=== PATIENT | male | born 1965 | race Caucasian/White ===

== ENCOUNTER → 2018-08-01 | Outpatient (CLI) | payer BC ==
[~2018-08-01] MED LIST: NORCO 5-325 TA1 EACH PO
== END ==
LOC: M.MRI 07:43
DX: M17.11 Unilateral primary osteoarthritis, right knee (principal); Z88.8 Allergy status to other drugs, medicaments and biological substances

== ENCOUNTER 2019-03-01 05:13 | Inpatient (IN) | payer BC ==
[~2019-03-01] VITALS: Ht 177.8 cm; Wt 95.3 kg
[2019-03-01 05:27] VITALS: BP 167/118; BP 167/78
[2019-03-01 05:49] LABS: URINE BILIRUBIN NEGATIVE (Negative); URINE BLOOD 3+ (Negative); URINE CLARITY CLEAR; URINE COLOR YELLOW; URINE GLUCOSE-RANDOM NEGATIVE (Negative); URINE KETONES NEGATIVE (Negative); URINE LEUKOCYTES-REFLEX 1+ (Negative); URINE NITRITE-REFLEX NEGATIVE (Negative); URINE PROTEIN TRACE (Negative); URINE SPECIFIC GRAVITY 1.015 (1.005-1.030); URINE UROBILINOGEN 0.2 E.U./dl (0.2-1.0)
[2019-03-01 05:57] LABS: BACTERIA-REFLEX 1-9 Few /HPF (None Seen); CASTS None Seen /LPF (None Seen); CRYSTALS None Seen /LPF (None Seen); MUCUS 4-6 Moderate strn/LPF (None Seen); SQUAMOUS 0-3 Few /LPF (0-3); URINE WBC-REFLEX 0-5 Rare /HPF (0-5)
[2019-03-01 06:00] LABS: ABSOLUTE BASOPHILS 0.1 thou/uL (0.0-0.2); ABSOLUTE EOSINOPHILS 0.1 thou/uL (0.0-0.7); ABSOLUTE LYMPHOCYTES 1.3 thou/uL (0.8-5.3); ABSOLUTE MONOCYTES 1.5 thou/uL (0.0-1.2); ABSOLUTE NEUTROPHILS 11.6 thou/uL (1.6-8.1); EOSINOPHILS 0.5 %; HEMATOCRIT 44.2 % (42.0-52.0); HEMOGLOBIN 14.9 gm/dL (14.0-18.0); MCH 30.4 pg (26.0-34.0); MCHC 33.7 g/dL (28.0-37.0); MCV 90.2 fL (80.0-100.0); MPV 6.9 fl. (7.2-11.1); NUCLEATED RBCS 0 /100WBC; PLATELET COUNT* 322 thou/uL (150-400); POLYS 79.5 %; RDW-CV 13.4 % (10.5-14.5); WBC 14.6 thou/uL (4.0-11.0)
[2019-03-01 06:07] LABS: CALCIUM 9.1 mg/dL (8.5-10.1); POTASSIUM 4.3 mmol/L (3.5-5.1)
[2019-03-01 06:10] LABS: APTT 27.9 Seconds (25.0-31.3); INR 1.1; PROTIME 11.1 Seconds (9.20-11.50)
[2019-03-01 06:11] LABS: ALBUMIN 3.2 g/dL (3.4-5.0); TOTAL BILIRUBIN 0.3 mg/dL (<0.1-1.0); TOTAL PROTEIN 7.5 g/dL (6.4-8.2)
[2019-03-01 11:07] VITALS: BP 139/104
[2019-03-01 16:15] VITALS: BP 144/110
--- NOTE | 2019-03-01 16:30 | NUR ---
PT ARRIVED FROM PACU. PT A&OX4,ORIENTED TO ROOM. CALL LIGHT WITHIN REACH.
--- NOTE | 2019-03-01 16:58 | EKG ---
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
[2019-03-01 17:03] LABS: AMP/METHAMP POSITIVE (Negative); BARBITURATES Negative (Negative); BENZODIAZEPINES Negative (Negative); COCAINE Negative (Negative); METHADONE Negative (Negative); OPIATES POSITIVE (Negative); PCP Negative (Negative); THC Negative (Negative)
[2019-03-01 20:30] VITALS: BP 146/95
[2019-03-02] VITALS: BP 141/82
[2019-03-02 03:23] LABS: URINE BILIRUBIN NEGATIVE (Negative); URINE BLOOD 3+ (Negative); URINE CLARITY CLEAR; URINE COLOR YELLOW; URINE GLUCOSE-RANDOM NEGATIVE (Negative); URINE KETONES NEGATIVE (Negative); URINE LEUKOCYTES-REFLEX NEGATIVE (Negative); URINE NITRITE-REFLEX NEGATIVE (Negative); URINE PROTEIN NEGATIVE (Negative); URINE UROBILINOGEN 0.2 E.U./dl (0.2-1.0)
[2019-03-02 03:41] LABS: BACTERIA-REFLEX 1-9 Few /HPF (None Seen); CASTS None Seen /LPF (None Seen); CRYSTALS None Seen /LPF (None Seen); MUCUS 0-3 Light strn/LPF (None Seen); SQUAMOUS 0-3 Few /LPF (0-3); URINE RBC >20 Many /HPF (0-2); URINE WBC-REFLEX 6-15 Few /HPF (0-5)
[2019-03-02 03:58] VITALS: BP 128/78
[2019-03-02 04:22] LABS: CALCIUM 8.3 mg/dL (8.5-10.1); CREATININE 1.5 mg/dL (0.6-1.3); POTASSIUM 4.2 mmol/L (3.5-5.1)
[2019-03-02 04:28] LABS: HEMATOCRIT 40.8 % (42.0-52.0); HEMOGLOBIN 13.5 gm/dL (14.0-18.0); MCH 30.2 pg (26.0-34.0); MCV 91.6 fL (80.0-100.0); MPV 7.4 fl. (7.2-11.1); RBC 4.46 mil/uL (4.50-6.00); RDW-CV 13.8 % (10.5-14.5); WBC 13.2 thou/uL (4.0-11.0)
--- NOTE | 2019-03-02 04:33 | NUR ---
PATIENT HAS REMAINED ALERT AND ORIENTED X 4 THROUGHOUT THE SHIFT AND RESTING QUIETLY ON HOURLY ROUNDS. UP INDEPENDENTLY IN THE ROOM. MEDICATED X 1 FOR KIDNEY PAIN TO GOOD EFFECT. IV RESTARTED AFTER DISLODGING DURING SLEEP. VOIDS PER URINAL IN LARGE AMOUNTS. PINK IN COLOR, NO CLOTS. IVF'S PER ORDER. NICOTINE PATCH ORDER AQUIRED PER ORDER. VITAL SIGNS STABLE. CONTINUENTO MONITOR.
[2019-03-02 08:15] VITALS: BP 144/83
--- NOTE | 2019-03-02 08:51 | OP ---
[address] [address] OPERATIVE REPORT Name: ERICA KIRKPATRICK Room: [address] IN .R.#: [id number] Admission: 03/01/19 Attend Phys: Nica Nicholson Discharge: Date of : 69 Report #: [id number] THIS REPORT FOR: //name// CC: [facility] Nica Olson DATE OF SERVICE: 03/01/2019 PREOPERATIVE DIAGNOSES: 1. Left proximal ureteral stone with hydronephrosis. 2. Acute renal failure. 3. Left renal stones. 4. Right staghorn renal stone. SURGEON: Alexa Bhardwaj MD PROCEDURE: Cystourethroscopy, left retrograde pyelogram and left ureteral stent placement (6 x 28). SURGEON: Alexa Bhradwaj MD ANESTHESIA: General. ESTIMATED BLOOD LOSS: None. COMPLICATIONS: None. SPECIMENS: Urine for culture and sensitivity. INDICATIONS FOR PROCEDURE: The patient is a 54-year-old male who presented with left flank pain. He was afebrile, but had some leukocytosis and creatinine elevation. CT scan revealed a large left proximal obstructing stone along with left renal stones. Also, he was noted to have a large right staghorn stone. Urine was mildly questionable for infection, although nitrite was negative. He did have a few bacteria noted on UA. Options were discussed. Because of the large stone burden on the right, he will need a PCNL eventually, but the acute problem currently appears to be the left obstructing stone. We discussed possibility of ureteroscopy versus just stent placement, depending on how the urine looked. As long as he is not having any a right-sided symptoms and seems to be improving, we will try to avoid nephrostomy tube placement during this hospitalization, but if he does develop intractable flank pain on the right or fever or signs of sepsis, he will need a right nephrostomy tube placed as well as a left ureteral stent and then he will need right PCNL electively. We discussed the risks of this procedure including infection, bleeding, injury to the urethra, bladder, ureter, need for secondary procedures, stent pain, [place] [address] OPERATIVE REPORT Name: ERICA KIRKPATRICK Room: [address] IN [facility]#: [id number] Admission: 03/01/19 Attend Phys: Nica Nicholson Discharge: Date of : 69 Report #: [id number] cardiopulmonary complications. He does understand that stent is not a permanent structure and needs to be removed or changed in a timely fashion. He understands the importance of followup. He voiced understanding of all this and wishes to proceed. DESCRIPTION OF PROCEDURE: After informed consent was obtained, the patient was taken back to the operating suite and placed supine. After induction of general anesthesia, he was placed in dorsal lithotomy position. Genitalia prepped and draped in standard fashion. Rigid cystoscopy was performed. He had a very mild fossa stricture, but I was able to pass the scope without difficulty. The anterior urethra was normal without stricture. His prostate was short and nonobstructing. Bladder was carefully inspected with 30 and 70 degree lenses. 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 His ureteral orifices were orthotopic in position. His right staghorn stone was seen on fluoroscopy and in his proximal left ureteral stone was also seen on fluoroscopy. He also appeared to have some stone material what appeared to be in the distal ureter on fluoroscopy. Retrograde was performed on the left with a cone tip catheter. This revealed a multitude of filling defects in the very distal ureter with proximal hydroureteronephrosis. It was difficult to get the contrast to pass the mid ureter. It looked like he had dropped some stone material into the distal ureter and some sand came from the left UO, but then after the wire was placed, which passed into the kidney without difficulty, a decent amount of brown purulent looking urine drained. Given that appearance of the urine, I elected to just place a stent at this time. A 5-Uzbek open-ended catheter was threaded over the wire into the kidney and the wire was removed. Urine was aspirated and actually from the renal pelvis, this looked clear and not purulent. The wire was replaced after injecting contrast to delineate the collecting system for stent placement and this revealed hydroureteronephrosis with a large proximal stone noted and multiple distal stones noted. The wire that was left in place and a 6-Uzbek x 28 cm double-J stent was threaded over the wire without difficulty. Proximal curl was noted to be in the mid pole and there was good curl in the bladder under direct visualization. There was no further drainage of any purulent material. However, urine was sent for culture and sensitivity. Some very tiny stone sand was seen at the base of the bladder after this wire and stent was placed, and this was drained out of the bladder. The bladder was filled and emptied one final time. The scope was removed, 5 mL of lidocaine jelly were placed per urethra for local anesthesia. He was awoken, extubated, and taken to recovery in satisfactory condition. He will be admitted to the floor on IV antibiotics, await his cultures. He will need antibiotics prior to proceeding with ureteroscopy on the left. He will then need an elective right PCNL at some point as well. <ELECTRONICALLY SIGNED> By: Alexa Bhardwaj MD 03/02/19 0851 [id number] Bhardwaj MD /nt
[2019-03-02 15:41] VITALS: BP 128/78
--- NOTE | 2019-03-02 18:35 | NUR ---
PATIENT PLEASANT AND COOPERATIVE THRU SHIFT W/ ASSESS AND CARES. INDEP IN RM W/ STEADY GAIT. PATIENT STATES HE HAS HX OF NARCOLEPSY, FALLS ASLEEP WHEN HE IS NOT MOVING AROUND AND STAYING BUSY. IV FLUIDS INFUSING W/O DIFF. IV SITE NOTED WNL. PATIENT DENIES PAIN, N/V THIS SHIFT. HRLY ROUNDS DONE. DENIES NURSING NEEDS AT THIS TIME. CALL LIGHT IN REACH. ~TJRN
[2019-03-02 20:00] VITALS: BP 136/91
[2019-03-03] VITALS: BP 140/94
[2019-03-03 04:17] LABS: HEMATOCRIT 38.9 % (42.0-52.0); MCH 30.6 pg (26.0-34.0); MCHC 33.5 g/dL (28.0-37.0); MCV 91.4 fL (80.0-100.0); MPV 7.3 fl. (7.2-11.1); RBC 4.25 mil/uL (4.50-6.00); RDW-CV 13.8 % (10.5-14.5); WBC 10.6 thou/uL (4.0-11.0)
[2019-03-03 04:34] LABS: CALCIUM 8.3 mg/dL (8.5-10.1); CREATININE 1.2 mg/dL (0.6-1.3); POTASSIUM 3.6 mmol/L (3.5-5.1)
[2019-03-03 08:15] VITALS: BP 135/91
[2019-03-03] MEDS ORDERED: ZOFRAN ODT4 MG DISSOLVE (13:21)
[2019-03-03] MEDS ORDERED: HYDROCODON-ACE1 EAC7 PO (13:21)
[2019-03-03] MEDS ORDERED: LEVSIN0.125 MG SUBLING (13:21)
[2019-03-03] MEDS ORDERED: LEVAQUIN 750 M750 MG PO (13:21)
[2019-03-03] MEDS ORDERED: NICOTINE TRANSD14 M1 TRANSDERM (13:21)
[2019-03-03 16:14] VITALS: BP 135/91
[2019-03-03 16:18] VITALS: BP 135/91
--- NOTE | 2019-03-03 17:14 | NUR ---
I ASSUMED CARE OF THE PATIENT AT 0700. HE IS ALERT AND ORIENTED X4 AND IS UP AD NORBERTO. DAUGHTER IS AT THE BEDSIDE. BED IS IN THE LOW LOCKED POSITION AND CALL LIGHT IS IN REACH. HOURLY ROUNDING IS COMPLETED AND PATIENT NEEDS ARE MET. PAIN IS DENIED. WILL CONTINUE TO MONITOR. HE IS DISCHARGED TO HOME WITH SCRIPTS AT 1645.
== END 2019-03-03 16:45 | disposition home or self-care (01) | DRG 661 ==
LOC: M.ERS 05:13 → M.TBA-ER 07:52 → M.ORTHSURG 07:52 → M.TBA-ER 13:34 → M.ORTHSURG 16:29
PROVIDERS: Personal Emergency Response Attendant; Urology; ADMIT Family Medicine
PROC: BT1F1ZZ Fluoroscopy of Left Kidney, Ureter and Bladder using Low Osmolar Contrast (ICD-10-PCS; principal; 2019-03-01)
PROC: 0T778DZ Dilation of Left Ureter with Intraluminal Device, Via Natural or Artificial Opening Endoscopic (ICD-10-PCS; principal; 2019-03-01)
DX: N13.6 Pyonephrosis (principal); N17.9 Acute kidney failure, unspecified; N12 Tubulo-interstitial nephritis, not specified as acute or chronic; R61 Generalized hyperhidrosis; F17.210 Nicotine dependence, cigarettes, uncomplicated; R31.9 Hematuria, unspecified; K76.0 Fatty (change of) liver, not elsewhere classified; Z87.442 Personal history of urinary calculi; Z79.891 Long term (current) use of opiate analgesic; Z79.899 Other long term (current) drug therapy; Z79.2 Long term (current) use of antibiotics

== ENCOUNTER 2021-01-05 15:05 | Inpatient (IN) | payer OTHER ==
[~2021-01-05] VITALS: Ht 177.8 cm; Wt 105.7 kg
[~2021-01-05 15:05] MED LIST changes: +HYDROCODON-ACE1 EAC7 PO; +LEVAQUIN 750 M750 MG PO; +LEVSIN0.125 MG SUBLING; +NICOTINE TRANSD14 M1 TRANSDERM; +ZOFRAN ODT4 MG DISSOLVE
[2021-01-05 15:15] VITALS: BP 166/105
[2021-01-05 15:32] LABS: ABSOLUTE BASOPHILS 0.1 thou/uL (0.0-0.2); ABSOLUTE EOSINOPHILS 0.2 thou/uL (0.0-0.7); ABSOLUTE LYMPHOCYTES 1.7 thou/uL (0.8-5.3); ABSOLUTE MONOCYTES 1.3 thou/uL (0.0-1.2); ABSOLUTE NEUTROPHILS 10.3 thou/uL (1.6-8.1); EOSINOPHILS 1.3 %; HEMATOCRIT 43.6 % (42.0-52.0); HEMOGLOBIN 14.7 gm/dL (14.0-18.0); LYMPHOCYTES 12.3 %; MCHC 33.8 g/dL (28.0-37.0); MCV 91.7 fL (80.0-100.0); MONOCYTES 9.4 %; MPV 7.2 fl. (7.2-11.1); NUCLEATED RBCS 0 /100WBC; PLATELET COUNT* 306 thou/uL (150-400); RBC 4.75 mil/uL (4.50-6.00); RDW-CV 15.2 % (10.5-14.5); WBC 13.6 thou/uL (4.0-11.0)
[2021-01-05 15:33] LABS: URINE BILIRUBIN NEGATIVE (Negative); URINE BLOOD 3+ (Negative); URINE COLOR YELLOW; URINE GLUCOSE-RANDOM NEGATIVE (Negative); URINE KETONES NEGATIVE (Negative); URINE NITRITE-REFLEX NEGATIVE (Negative); URINE PROTEIN TRACE (Negative); URINE UROBILINOGEN 0.2 E.U./dl (0.2-1.0)
[2021-01-05 15:35] LABS: URINE CLARITY CLOUDY; URINE LEUKOCYTES-REFLEX 3+ (Negative)
[2021-01-05 15:36] LABS: BACTERIA-REFLEX >30 Many /HPF (None Seen); CASTS None Seen /LPF (None Seen); CRYSTALS None Seen /LPF (None Seen); SQUAMOUS 0-3 Few /LPF (0-3); URINE RBC >20 Many /HPF (0-2); URINE WBC-REFLEX >25 Many /HPF (0-5)
[2021-01-05 15:41] LABS: CALCIUM 9.1 mg/dL (8.5-10.1)
[2021-01-05 15:46] LABS: ALBUMIN 3.9 g/dL (3.4-5.0); TOTAL BILIRUBIN 0.5 mg/dL (<0.1-1.0); TOTAL PROTEIN 7.3 g/dL (6.4-8.2)
[2021-01-05 20:00] VITALS: BP 143/70
[2021-01-05 20:10] VITALS: BP 166/98
[2021-01-06 04:40] LABS: CALCIUM 8.1 mg/dL (8.5-10.1); CREATININE 2.3 mg/dL (0.6-1.3); HEMATOCRIT 41.1 % (42.0-52.0); HEMOGLOBIN 13.7 gm/dL (14.0-18.0); MCH 30.6 pg (26.0-34.0); MCHC 33.3 g/dL (28.0-37.0); MCV 91.9 fL (80.0-100.0); MPV 7.3 fl. (7.2-11.1); POTASSIUM 3.8 mmol/L (3.5-5.1); RBC 4.47 mil/uL (4.50-6.00); RDW-CV 14.7 % (10.5-14.5); WBC 13.1 thou/uL (4.0-11.0)
--- NOTE | 2021-01-06 04:51 | NUR ---
PATIENT HAS REMAINED ALERT AND ORIENTED X 4 FROM ARRIVAL TO UNIT FROM ER AT 2009. MEDICATED FOR LLQ ABDOMINAL AND BACK PAIN X 2 TO GOOD EFFECT. NO NAUSEA. PATIENT UP INDEPENDENTLY TO BR AND HAS VOIDED Q2H. DID NOT UNDERSTAND INSTRUCTION TO USE URINAL FOR MEASURED VOIDS. PATIENT THOUGHT URINAL MEANT THE TOILET. RE-INSTRUCTED. IVF'S PER ORDER. NPO . UROLOGY [facility] WAS CALLED AT 2100 BY [facility]. NO CALL BACK THIS SHIFT. CONTINUE TO MONITOR.
[2021-01-06 08:00] VITALS: BP 153/94
--- NOTE | 2021-01-06 12:30 | NUR ---
Consult given to Dr. Sweeney and he reviewed patient's chart. States there is a consult also to urology and they retrograde stented this patient the last hospital admission and would like for the Urology group to see patient prior to IR placing nephrostomy tubes and possible avoid an unnecessary procedure. Relayed this message to the RN caring for the patient. Asked her to call Dr. Flores with urology and let us know if we still need to do this procedure or not.
[2021-01-06 16:00] VITALS: BP 142/64; BP 142/90
--- NOTE | 2021-01-06 17:03 | NUR ---
Patient was A,OX4 remained npo until 1600 seem by urologist kendy . patient to be npo after midnight . c/o pain and morphine 4mg IV administered . No issue voiced at this time.
[2021-01-07 00:13] VITALS: BP 153/100
[2021-01-07 04:32] LABS: HEMATOCRIT 41.1 % (42.0-52.0); HEMOGLOBIN 13.7 gm/dL (14.0-18.0); MCH 30.8 pg (26.0-34.0); MCHC 33.3 g/dL (28.0-37.0); MCV 92.4 fL (80.0-100.0); MPV 7.4 fl. (7.2-11.1); RBC 4.45 mil/uL (4.50-6.00); RDW-CV 14.9 % (10.5-14.5)
[2021-01-07 04:53] LABS: CALCIUM 8.3 mg/dL (8.5-10.1); CREATININE 2.3 mg/dL (0.6-1.3); POTASSIUM 3.7 mmol/L (3.5-5.1)
--- NOTE | 2021-01-07 06:09 | NUR ---
PATIENT HAS RESTED WELL THROUGHOUT MOST OF THE NIGHT. VSS ON RA. MEDICATION GIVEN ORDERED AND CHARTED. PATIENT HAS REMAINED NPO SINCE MIDNIGHT FOR POSSIBLE PROCEDURE TODAY. NEW IV INSERTED IN RIGHT AC- NS @ 100ML/HR. PATIENT INSTRUCTED TO USE CALL LIGHT WHEN NEEDING ASSISTANCE. HOURLY ROUNDS MADE. WILL CONTINUE WITH PLAN OF CARE AND NURSING TO MONITOR.
[2021-01-07 08:46] VITALS: BP 165/96
--- NOTE | 2021-01-07 08:49 | NUR ---
Pt is A&O. Resides at home. Independent. No DME. No hx of Hh or SNF. Patient pay, Pt states he has insurance, [facility] to work with Pt to obtain insurance card. Plan nephrostomy tube placement
--- NOTE | 2021-01-07 14:32 | NUR ---
Nephrostomy tubes placed today. Per [facility], Pt's insurance is inactive, [facility] to continue to work with Pt.
--- NOTE | 2021-01-07 19:55 | NUR ---
patient nephrotomy tube were place today to both right and left kidney . patient tolorated well . DRESSING TO LEFT ON X 3 DAY . No issue voiced at this tiem
[2021-01-07 22:00] VITALS: BP 151/100
--- NOTE | 2021-01-08 06:00 | NUR ---
PATIENT SLEPT PART OF THE NIGHT. NEW IV WAS STARTED CHARTED IV FLUIDS CONTINUE AT 100 ML/HR. BILATERAL NEPHROSTOMY TUBES REMAIN IN PLACE. DRESSINGS WERE CHANGED ONCE AND REMAIN INTACT. PATIENT DENIED THE NEED FOR ANY PAIN MEDICINE. WILL CONTINUE TO MONITOR.
[2021-01-08 08:00] VITALS: BP 154/100
[2021-01-08] MEDS ORDERED: NORCO5 PO (09:30)
--- NOTE | 2021-01-08 13:09 | NUR ---
Pt discharging to home today, no needs.
[2021-01-08 15:51] VITALS: BP 154/100
--- NOTE | 2021-01-08 17:01 | NUR ---
I ASSUMED CARE OF THE PATIENT AT 0700. HE IS ALERT AND ORIENTED X4 AND IS UP AD NORBERTO. BED IS IN THE LOW LOCKED POSITION AND CALL LIGHT IS IN REACH. PATIENT NEEDS ARE MET AND PAIN IS MANAGED DURING HOURLY ROUNDING. HE REFUSED TO BATHE SINCE HE IS BEING DISCHARGED TODAY. NEPHROLOGY BAGS ARE DRAINING WELL AND PATIENT IS EMPTING THEM HIMSELF. NEW BAGS WERE GIVEN TO THE PATIENT SO LEG BAGS COULD BE UTILIZED. HE UNDERSTANDS FOLLOW UP WITH NEPHROLOGY AND THE NEXT STEPS IN MONITORING HIS STONES. SCRIPTS IS CALLED IN TO HIS LOCAL PHARMACY. DISCHARGED TO HOME WITH AT 1630.
[2021-01-08] MEDS ORDERED: FLOMAX0.4 MG PO (20:12)
[2021-01-08] MEDS ORDERED: MACRODANTIN50 M1 PO (20:14)
== END 2021-01-08 16:30 | disposition home or self-care (01) | DRG 689 ==
LOC: M.ERS 15:05 → M.TBA-ER 16:45 → M.3W 16:45
PROVIDERS: Family Medicine; ADMIT Internal Medicine; ATTEND Internal Medicine
PROC: 0T783DZ Dilation of Bilateral Ureters with Intraluminal Device, Percutaneous Approach (ICD-10-PCS; principal; 2021-01-07)
PROC: 0T903ZZ Drainage of Right Kidney, Percutaneous Approach (ICD-10-PCS; principal; 2021-01-07)
PROC: 0T913ZZ Drainage of Left Kidney, Percutaneous Approach (ICD-10-PCS; principal; 2021-01-07)
DX: N13.6 Pyonephrosis (principal); R65.11 Systemic inflammatory response syndrome (SIRS) of non-infectious origin with acute organ dysfunction; N17.0 Acute kidney failure with tubular necrosis; I10 Essential (primary) hypertension; Z20.822 Contact with and (suspected) exposure to COVID-19; Z84.1 Family history of disorders of kidney and ureter